=== PATIENT | female | born 1935 | race Caucasian/White ===

== ENCOUNTER → 2017-01-17 | Outpatient (CLI) | payer MEDICARE, OTHER ==
--- NOTE | ~2017-01-17 | NDGEN ---
PATIENT'S NAME: JOSÉ MANUEL I [facility] AGE: 81 Y [address] ROOM: [place] [id number] LOCATION: [facility] ADMIT DATE: 01/17/2017 Neurodiagnostics DISCHARGE DATE: FAMILY PHYSICIAN: Sagrario Mcfadden MD ATTENDING PHYSICIAN: Sagrario Mcfadden PROCEDURE: NERVE CONDUCTION STUDY OF THE BILATERAL UPPER EXTREMITIES AND LEFT UPPER EXTREMITY ELECTROMYOGRAM. DATE OF PROCEDURE: 01/17/2017 INDICATION: This is a 81-year-old female, who has a prior history of right wrist carpal tunnel release surgery, who comes in with similar symptoms of carpal tunnel syndrome symptoms in her left upper extremity from the wrist into her fingers. DESCRIPTION: Nerve conduction studies were performed of the median and ulnar motor and sensory nerves. There was a definite delay in the motor onset latencies out to 7 msec in the left median nerve at the wrist. Amplitudes were well preserved, and nerve conduction velocities were actually well preserved. Nonetheless, motor onset latencies sensitivities were quite high for median neuropathy at the wrist. The median onset latency in the right was slightly prolonged to 4.0 msec, but this was not odd considering the patient had a prior surgery at the right wrist. The ulnar motor onset latencies and amplitudes and nerve conduction velocities were all within normal limits. On the sensory nerve conduction studies, the median peak latency was delayed at the left wrist out to 5.5 msec with the normal peak being 3.7 msec. The right median sensory nerve was actually within normal limits for the patient's age. The ulnar sensory nerve conduction velocities and peak onset latencies were all within normal limits. F-wave studies of the bilateral upper extremities revealed essentially normal values. Next, needle EMG was placed into the abductor pollicis brevis muscle. There was spontaneous electrical activity consistent with fibrillation potentials seen in this thinned out thenar eminence; however, there was normal recruitment of motor unit action potentials. 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 Also, fibrillation potentials were seen in the adductor pollicis brevis muscle in the left hand consistent with acute active neuropathy. There was good preserved motor unit action potential seen on PATIENT'S NAME: JOSÉ MANUEL I [facility] AGE: 81 Y [address] ROOM: [place], [place] [address] LOCATION: [facility] ADMIT DATE: 01/17/2017 Neurodiagnostics DISCHARGE DATE: FAMILY PHYSICIAN: Sagrario Mcfadden MD ATTENDING PHYSICIAN: Sagrario Mcfadden voluntary recruitment. Therefore, carpal tunnel release surgery is recommended at the left wrist, and a good recovery would be expected as motor unit action potential recruitment is normal. MD MARY LOU SMITH/gerber /[id number] dtt: 01/17/17 2120 , BRYON LINDSEY dtd: 01/17/17 1758
== END | disposition disaster alternative care site (69) ==
LOC: GNEU 01-05 15:00
DX: R20.2 Paresthesia of skin (principal); G62.9 Polyneuropathy, unspecified; M62.89 Other specified disorders of muscle

== ENCOUNTER → 2017-05-10 | Outpatient (CLI) | payer MEDICARE, OTHER ==
[2017-05-10 17:06] LABS: ALBUMIN 4.1 gm/dL (3.5-5.0); ANION GAP 12.2 (10.0-19.0); CALCIUM 9.3 mg/dL (8.5-10.5); CREATININE 1.1 mg/dL (0.5-1.1); POTASSIUM 4.2 mMol/L (3.7-5.1); TOTAL BILIRUBIN 0.5 mg/dL (0.0-1.5); TOTAL PROTEIN 7.9 g/dL (6.0-8.4)
== END ==
LOC: LNHI 16:44
PROVIDERS: Internal Medicine Interventional Cardiology
DX: E78.5 Hyperlipidemia, unspecified (principal); I10 Essential (primary) hypertension; I25.10 Atherosclerotic heart disease of native coronary artery without angina pectoris